=== PATIENT | male | born 1950 | race Caucasian/White ===

== ENCOUNTER 2018-10-09 08:58 | Emergency (ER) | payer OTHER ==
[~2018-10-09] VITALS: Ht 180.3 cm; Wt 100.0 kg
[2018-10-09 09:05] VITALS: Ht 180.3 cm; Wt 100.0 kg
[2018-10-09] MEDS ORDERED: SOD CHLORIDE 0.9% 1,000 ML IV STA (09:09)
[2018-10-09] MEDS ORDERED: ONDANSETRON 4 MG INJ IV STA (09:34)
[2018-10-09] MEDS ORDERED: LORAZEPAM 2 MG INJ IV ONE (10:00)
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
[2018-10-09] MEDS ORDERED: BLOO-1030 MC (11:18)
[2018-10-09] MEDS ORDERED: LANT3I SC (11:18)
[2018-10-09] MEDS ORDERED: APIX5TAB PO (11:18)
[2018-10-09] MEDS ORDERED: TAMS-14 PO (11:18)
[2018-10-09] MEDS ORDERED: DILT360C38 PO (11:18)
[2018-10-09] MEDS ORDERED: METO-335 PO (11:18)
[2018-10-09] MEDS ORDERED: PRAV20TA2 PO (11:18)
[2018-10-09] MEDS ORDERED: LISI10TA2 PO (11:18)
[2018-10-09] MEDS ORDERED: ONDA4TAB14 PO (11:28)
[2018-10-09 12:18] VITALS: BP 131/85; PULSE 80; RESP 16
== END 2018-10-09 12:19 | disposition home or self-care (01) ==
LOC: E/R 08:58
DX: E11.649 Type 2 diabetes mellitus with hypoglycemia without coma (principal); J44.9 Chronic obstructive pulmonary disease, unspecified; I11.0 Hypertensive heart disease with heart failure; I50.9 Heart failure, unspecified; R55 Syncope and collapse; Z79.4 Long term (current) use of insulin
CPT/HCPCS: 36415; 70450; 80053; 82150; 82550; 82553; 82962; 83690; 84484; 85025; 85610; 85730; 93005; 96374; 96375; 99285; J2060; J2405; J7030